=== PATIENT | male | born 1970 | race Caucasian/White ===

== ENCOUNTER 2021-11-06 18:37 | Emergency (ER) | payer OTHER ==
[~2021-11-06] VITALS: Ht 177.8 cm; Wt 97.0 kg
--- NOTE | 2021-11-06 18:59 | PHYS DOC ---
Past History Past Medical History: A-Fib, High Cholesterol, Hypertension Past Surgical History Hernia repair umbilicus General Adult EDM: Chief Complaint: CHEST PAIN HPI: HPI: '... I am. 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 For the .. 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 Had just come appear for a project... From [facility]... Under a lot of stress with this project... And I been off for approximately 2 years because had some problems with A. fib,.... 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 Patient presents with above hx and complaints of chest pain. EKG ran while in lobby while waiting for room to open up showed no findings of acute STEMI. Currently patient is without chest pain. Patient states the pain has been intermittent for the last couple days. Patient does have a history of A. fib., Elevated cholesterol, and hypertension. Patient recently taking off Eliquis and on daily aspirin. He has not had recurrent events of his A. fib. Patient has had recent travel from [facility]. Patient has had 3 COVID vaccinations. Patient has had flu vaccination this season. Patient up-to-date with other vaccinations. Patient states his current job is somewhat high stress suspects his chest discomfort is related to that. Patient states he has not noticed a return to his A. fib rhythm. Review of Systems: Review of Systems: Constitutional: Denies fever or chills Eyes: Denies change in visual acuity HENT: Denies nasal congestion or sore throat Respiratory: Denies cough or shortness of breath Cardiovascular: Complains of central nonradiating chest pain GI: Denies abdominal pain, nausea, vomiting, bloody stools or diarrhea : Denies dysuria Musculoskeletal: Denies back pain or joint pain Integument: Denies rash Neurologic: Denies headache, focal weakness or sensory changes Endocrine: Denies polyuria or polydipsia Lymphatic: Denies swollen glands Psychiatric: Denies depression or anxiety Family History: Family History: Noncontributory to presentation Current Medications: Current Meds: See nursing for home meds Allergies: Allergies: No known drug allergies Physical Exam: PE: Constitutional:no acute distress, non-toxic appearance. [] HENT: Normocephalic, atraumatic, bilateral external ears normal, oropharynx moist, no oral exudates, nose normal. [] Eyes: PERRLA, EOMI, conjunctiva normal, no discharge. [] Neck: Normal range of motion, no tenderness, supple, no stridor. [] Cardiovascular:Tacycardia Heart rate irregular rhythm, no murmur [] PMI slightly to left. Lungs & Thorax: Bilateral breath sounds equal apex auscultation [] Abdomen: Bowel sounds normal, soft, no tenderness, no masses, no pulsatile masses. Like a scar. Skin: Warm, dry, no erythema, no rash. [] Back: No tenderness, no CVA tenderness. [] Extremities: No tenderness, no cyanosis, no clubbing, ROM intact, no edema. No cording appreciated. Neurologic: Alert and oriented X 3, normal motor function, normal sensory function, no focal deficits noted. [] Psychologic: Affect anxious, judgement normal, mood normal. [] EKG: EKG: My interpretation EKG shows a sinus tachycardia 100 bpm, no findings acute STEMI of contralateral changes. Time of EKG 1851 hrs. [] My interp. repeat 2301 hrs. Sinus 90 no acute Radiology/Procedures: Radiology/Procedures: [][address] [address] IMAGING REPORT Signed PATIENT: MARCIN BRANDON ACCOUNT: [id number] : 1970 LOCATION: ER AGE: 50 SEX: M EXAM STATUS: REG ER ORD. PHYSICIAN: HOA JONES MD REASON: cp PROCEDURE: CHEST AP ONLY EXAM: CHEST ONE VIEW. HISTORY: Chest pain. COMPARISON: None. FINDINGS: A frontal view of the chest is obtained. There are no confluent infiltrates. There is no pneumothorax or pleural effusion. The heart is not enlarged. IMPRESSION: 1. No confluent infiltrates. Electronically signed by: Venancio Hinson MD (11/06/2021 7:27 PM) [facility] DICTATED AND SIGNED BY: CHEYANNE HINSON MD DATE: 11/06/211925 CC: HOA JONES MD; PCP,NO ~MTH0 0 Heart Score: C/O Chest Pain: N/A HEART Score for Chest Pain: HEART Score for Chest Pain Response (Comments) Value History Slighlty/Non-Suspicious 0 ECG Normal 0 Age >45 - < 65 1 Risk Factors 1 or 2 Risk Factors 1 Troponin < Normal Limit 0 Total 2 Risk Factors: Risk Factors: DM, Current or recent (<one month) smoker, HTN, HLP, family hist ory of CAD, obesity. Risk Scores: Score 0 - 3: 2.5% MACE over next 6 weeks - Discharge Home Score 4 - 6: 20.3% MACE over next 6 weeks - Admit for Clinical Observation Score 7 - 10: 72.7% MACE over next 6 weeks - Early Invasive Strategies Course & Med Decision Making: Course & Med Decision Making Pertinent Labs and Imaging studies reviewed. (See chart for details) Continue meds as directed. Keep follow with Primary and Cardiology Impression: 1. Chest Wall Pain 2. History of A. fib 3. Mild elevation AST ALT and alk phos 44/61/119 4. Hx Heavy ETOH yesterday Note: Dictation loss # [id number] [] [facility] Disclaimer: Dragon Disclaimer: This electronic medical record was generated, in whole or in part, using a voice recognition dictation system. Departure Departure: Referrals: PCP,NO (PCP) [facility] Disclaimer This chart was dictated in whole or in part using Voice Recognition software in a busy, high-work load, and often noisy Emergency Department environment. It may contain unintended and wholly unrecognized errors or omissions. HOA JONES MD Nov 06, 2021 18:59
[2021-11-06] MEDS ORDERED: IV RINGERS SOLUTION,LACTATED 1,000 ML IV SCH (19:00)
[2021-11-06] MEDS ORDERED: ASPIRIN CHEWABLE 81 MG TABLET. PO ONE (19:00)
--- NOTE | 2021-11-06 19:25 | EKG ---
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
--- NOTE | 2021-11-06 19:29 | RAD ---
EXAM: CHEST ONE VIEW. HISTORY: Chest pain. COMPARISON: None. FINDINGS: A frontal view of the chest is obtained. There are no confluent infiltrates. There is no pneumothorax or pleural effusion. The heart is not en larged. IMPRESSION: 1. No confluent infiltrates. Electronically signed by: Venancio Hinson MD (11/06/2021 7:27 PM) [facility]
[2021-11-06 21:18] LABS: CALCIUM 10.1 mg/dL (8.5-10.1); GFR 78.8; POTASSIUM 4.6 mmol/L (3.5-5.1)
[2021-11-06 21:30] LABS: BASO # 0.1 x10^3/uL (0.0-0.2); BASO % 1 % (0-3); EOS # 0.3 x10^3/uL (0.0-0.7); EOS % 3 % (0-3); HEMATOCRIT 42.3 % (39.0-53.0); HEMOGLOBIN 14.7 g/dL (13.0-17.5); LYMPH % 22 % (24-48); MEAN CORPUSCULAR HEMOGLOBIN 32 pg (25-35); MEAN CORPUSCULAR HGB CONC 35 g/dL (31-37); MEAN CORPUSCULAR VOLUME 91 fL (79-100); MONO # 0.8 x10^3/uL (0.0-1.1); MONO % 8 % (0-9); NEUT # 6.2 x10^3uL (1.8-7.7); NEUT % 67 % (31-73); PLATELET COUNT 287 x10^3/uL (140-400); RED BLOOD COUNT 4.64 x10^6/uL (4.30-5.70); RED CELL DISTRIBUTION WIDTH 14.1 % (11.5-14.5); WHITE BLOOD COUNT 9.3 x10^3/uL (4.0-11.0)
[2021-11-06 21:31] LABS: ALBUMIN 4.4 g/dL (3.4-5.0); DIRECT BILIRUBIN 0.1 mg/dL (0.0-0.2); MAGNESIUM 2.1 mg/dL (1.8-2.4); TOTAL BILIRUBIN 0.6 mg/dL (0.2-1.0)
[2021-11-06 21:34] LABS: BARBITURATES NEG (NEG); BENZODIAZEPINES NEG (NEG); CANNABINOIDS NEG (NEG); COCAINE NEG (NEG); METHADONE NEG (NEG); OPIATES NEG (NEG); PHENCYCLIDINE NEG (NEG)
[2021-11-06 21:38] LABS: AMPHETAMINE/METHAMPHETAMINE NEG (NEG)
[2021-11-06 21:57] LABS: BILIRUBIN,URINE NEG (NEG); CLARITY,URINE CLOUDY; COLOR,URINE YELLOW; GLUCOSE,URINE NEG (NEG); NITRITE,URINE NEG (NEG); RBC,URINE OCC /HPF (0-2); UROBILINOGEN,URINE 0.2 mg/dL (0.2 mg/dL)
[2021-11-06 21:58] LABS: BACTERIA,URINE MANY /HPF (0-FEW); SQUAMOUS EPITHELIAL CELL,UR MANY /LPF
[2021-11-06 23:20] LABS: INFLUENZA A PATIENT NEGATIVE (NEGATIVE); INFLUENZA B PATIENT NEGATIVE (NEGATIVE)
[2021-11-07 02:48] VITALS: BP 152/90
[2021-11-07] MEDS ORDERED: KETOROLAC 30 MG/ML VIAL. IVP ONE (03:00)
[2021-11-07] MEDS ORDERED: IBUPROFEN 400 MG TABLET. PO ONE (03:15)
--- NOTE | 2021-11-08 04:04 | EKG ---
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
== END 2021-11-07 03:10 | disposition home or self-care (01) ==
LOC: ER 18:37
DX: R07.89 Other chest pain (principal); R79.89 Other specified abnormal findings of blood chemistry; I48.91 Unspecified atrial fibrillation; I10 Essential (primary) hypertension; Z20.822 Contact with and (suspected) exposure to COVID-19; Z79.82 Long term (current) use of aspirin
CPT/HCPCS: 36415; 71045; 80048; 80076; 80307; 81001; 82550; 83690; 83735; 83880; 84443; 84484; 85025; 85379; 85610; 85730; 87086; 87428; 93005; 96360; 96361; 99285; J7120